=== PATIENT | female | born 1950 | race Caucasian/White ===

== ENCOUNTER → 2016-11-12 | Outpatient (CLI) | payer BC ==
[~2016-11-12] MED LIST: ALBU1AER9 INH; ALPR-411 PO; ASPI-232 PO; BUPR75TA8 PO
--- NOTE | 2016-11-12 16:25 | DIAGNOSTIC IMAGING REPORT ---
CHEST 2 VIEWS ROUTINE CLINICAL HISTORY: 66 years-old Female presenting with congestion, shortness of breath, asthma. TECHNIQUE: PA and lateral views of the chest were obtained. COMPARISON: 11/02/2012. FINDINGS: Cardiomediastinal silhouette normal. Lungs and pleural spaces clear. Osseous structures and upper abdomen normal. IMPRESSION: 1. No acute cardiopulmonary disease. Electronically signed by: Darius Hernandez M.D. 11/12/2016 4:24 PM Dictated Date/Time: 11/12/2016 4:23 PM
== END | disposition home or self-care (01) ==
LOC: C.RAD1850 16:05
PROVIDERS: ATTEND Internal Medicine Pulmonary Disease
DX: J45.909 Unspecified asthma, uncomplicated (principal)

== ENCOUNTER → 2017-06-17 | Outpatient (CLI) | payer OTHER ==
[2017-06-17 17:36] LABS: HEMATOCRIT 40.7 % (37-47); HEMOGLOBIN 13.6 g/dL (12.0-16.0); MEAN CELL VOLUME 93.3 fL (80-100); MEAN CORPUSCULAR HEMOGLOBIN 31.2 pg (25-34); MEAN CORPUSCULAR HGB CONC 33.4 g/dl (32-36); MEAN PLATELET VOLUME 12.7 fL (7.4-10.4); PLATELET COUNT 238 K/uL (130-400); RED CELL DISTRIBUTION WIDTH CV 13.9 % (11.5-14.5); RED CELL DISTRIBUTION WIDTH SD 47.4 fL (36.4-46.3); WHITE BLOOD COUNT 5.72 K/uL (4.8-10.8)
[2017-06-17 17:53] LABS: ALBUMIN 3.6 gm/dl (3.4-5.0); ALKALINE PHOSPHATASE 70 U/L (45-117); ALT/SGPT 20 U/L (12-78); AST/SGOT 21 U/L (15-37); BLOOD UREA NITROGEN 10 mg/dl (7-18); CALCIUM 8.4 mg/dl (8.5-10.1); CARBON DIOXIDE 24 mmol/L (21-32); CREATININE 0.73 mg/dl (0.60-1.20); GLUCOSE 80 mg/dl (70-99); POTASSIUM 3.9 mmol/L (3.5-5.1); SODIUM 138 mmol/L (136-145); TOTAL PROTEIN 7.5 gm/dl (6.4-8.2)
[2017-06-17 18:05] LABS: CHOLESTEROL 167 mg/dl (0-200); LDL CHOLESTEROL CALCULATED 96 mg/dl
== END | disposition home or self-care (01) ==
LOC: C.LABBFT 11:24
PROVIDERS: ATTEND Internal Medicine
DX: E78.00 Pure hypercholesterolemia, unspecified (principal)

== ENCOUNTER 2017-11-25 21:32 | Observation (INO) | payer OTHER ==
[~2017-11-25] VITALS: Ht 157.5 cm; Wt 79.0 kg
[2017-11-25] MEDS ORDERED: SODIUM CHLORIDE 0.9% 1000ML 1,000 ML IV STA ×2 (22:05→23:40)
[2017-11-25] MEDS ORDERED: MoRPHine SULFATE 4 MG/ML 1 ML CARP\\VIAL IV STA (22:05)
[2017-11-25] MEDS ORDERED: ONDANSETRON INJ 2 MG/ML 2 ML VIAL IV STA (22:05)
[2017-11-25 22:14] LABS: BASO ABS # 0.09 K/uL (0-0.2); EOS % 1.9 %; EOS ABS # 0.17 K/uL (0-0.5); HEMATOCRIT 40.9 % (37-47); HEMOGLOBIN 14.6 g/dL (12.0-16.0); IG# 0.03 K/uL (0.00-0.02); LYMPH % 35.8 %; LYMPH ABS # 3.15 K/uL (1.2-3.4); MEAN CELL VOLUME 92.3 fL (80-100); MEAN CORPUSCULAR HGB CONC 35.7 g/dl (32-36); MONO % 7.8 %; MONO ABS # 0.69 K/uL (0.11-0.59); NEUT % 53.2 %; NEUT ABS # 4.67 K/uL (1.4-6.5); PLATELET COUNT 237 K/uL (130-400); RED CELL DISTRIBUTION WIDTH SD 47.5 fL (36.4-46.3)
[2017-11-25] MEDS ORDERED: OPTIRAY 300 IV PRN (22:15)
[2017-11-25] MEDS ORDERED: HYDROmorphone INJ 1 MG/ML SYR IV STA (22:22)
[2017-11-25 22:26] LABS: ISTAT CREATININE 0.7 mg/dl (0.6-1.3); ISTAT IONIZED CALCIUM 0.89 mmol/l (1.12-1.32)
[2017-11-25 22:36] LABS: ALBUMIN 3.9 gm/dl (3.4-5.0); ALKALINE PHOSPHATASE 104 U/L (45-117); ALT/SGPT 24 U/L (12-78); AST/SGOT 28 U/L (15-37); BLOOD UREA NITROGEN 10 mg/dl (7-18); CALCIUM 8.6 mg/dl (8.5-10.1); CARBON DIOXIDE 23 mmol/L (21-32); CREATININE 1.01 mg/dl (0.60-1.20); GLUCOSE 99 mg/dl (70-99); LIPASE 174 U/L (73-393); POTASSIUM 3.8 mmol/L (3.5-5.1); SODIUM 136 mmol/L (136-145); TOTAL PROTEIN 7.9 gm/dl (6.4-8.2)
--- NOTE | 2017-11-25 22:37 | DIAGNOSTIC IMAGING REPORT ---
ABD/PELVIS IV CONTRAST ONLY CT DOSE: 616.63 mGy.cm HISTORY: Pain severe abd pain, lower, no BM TECHNIQUE: Multiaxial CT images of the abdomen and pelvis were performed following the use of intravenous contrast. A dose lowering technique was utilized adhering to the principles of ALARA. COMPARISON STUDY: None. FINDINGS: Lung bases are clear. Mild fatty replacement of the liver. Small hepatic cysts. Gallbladder is negative for distention. Kidneys enhance uniformly with no evidence for hydronephrosis. Bowel pattern is consistent with that of acute proximal to mid sigmoid diverticulitis. Moderate pericolonic infiltrative change with no evidence for abscess collection or obstructive change. Mild nonspecific small bowel enteritis. This may be reactive. IMPRESSION: 1. Acute proximal to mid sigmoid acute diverticulitis. 2. Mild secondary small bowel enteritis. 3. No evidence for abscess collection or obstruction. The above report was generated using voice recognition software. It may contain grammatical, syntax or spelling errors. Electronically signed by: Librado Segura M.D. 11/25/2017 10:35 PM Dictated Date/Time: 11/25/2017 10:32 PM
[2017-11-25] MEDS ORDERED: METRONIDAZOLE 500MG / 100ML NSS IV STA (22:38)
[2017-11-25] MEDS ORDERED: CEFTRIAXONE SOD INJ 2,000 MG in DEXTROSE 5% 50ML 50 ML IV STA (22:38)
[2017-11-25] MEDS ORDERED: VNTHFA/IN INH (22:57)
[2017-11-25] MEDS ORDERED: MOME200A INH (22:57)
[2017-11-25] MEDS ORDERED: MONT1TAB3 PO (22:57)
[2017-11-25] MEDS ORDERED: BUPR-102 PO (22:57)
[2017-11-25] MEDS ORDERED: ALUMINUM/MAGNESIUM/SIMETH (MAALOX MAX) 30 ML UDC PO PRN (23:30)
[2017-11-25] MEDS ORDERED: MAGNESIUM HYDROXIDE SUSP 30 ML UDC PO PRN (23:30)
[2017-11-25] MEDS ORDERED: ACETAMINOPHEN 325 MG TAB PO PRN (23:30)
[2017-11-25] MEDS ORDERED: POLYETHYLENE (MIRALAX) 17 GM PACK PO PRN (23:30)
--- NOTE | 2017-11-25 23:49 | History and Physical ---
History & Physical Date & Time of Service: Nov 25, 2017 at 23:33 Chief Complaint: Severe Abdominal Pain,Constipation Since Thursday Primary Care Physician: Gerard Carmona M.D. History of Present Illness Source: patient, hospital records Patient is a 67 year old female with a PMH of anxiety and asthma that presented to [facility] with abdominal pain. Her pain started this morning when she was on her way to exercise at the gym. She said the pain is in her lower abdomen. It is a crampy pain with episodes of worsening sharp pain. It was an 8/10 but is currently a 4/10. The pain radiates to her back bilaterally. She has had chills. She notes she has not had a bowel movement in 6 days. She denies any diarrhea, blood in stool, vomiting, weight loss, night sweats, hematuria, or dysuria. Due to the constipation she notes that she did speak to her PCP's nurse who told her to drink a concoction of sprite, and prune juice. The patient notes this made her symptoms worse. She did have a colonoscopy in 2013 which was normal. She has never had diverticulitis before. She eats a healthy varied diet. She exercises regularly. She was given 1mg of dilaudid in the ED and her sats went down to 80% therefore she was put on oxygen. Past Medical/Surgical History Medical Problems: (1) Diverticulitis Family History No family history of GI disease or bowel cancer Social History Smoking Status: Never Smoker Smokeless Tobacco Use: No Alcohol Use: socially (2 glasses of wine) Drug Use: none Marital Status: Housing status: lives with family Occupational Status: retired Immunizations History of Influenza Vaccine: Unknown History of Tetanus Vaccine?: Unknown History of Pneumococcal: Unknown History of Hepatitis B Vaccine: Unknown Allergies Coded Allergies: No Known Allergies (Unverified , 01/31/14) Home Medications Scheduled Alprazolam (Xanax), 0.5 MG PO BID Aspirin (Aspir-81), 81 MG PO DAILY Bupropion Hcl (Smoking Deterre (Bupropion Hcl Sr), 150 MG PO BID Mometasone Furoate-Formoterol (Dulera 200/5 Mcg), 2 PUFFS INH BID Montelukast Sodium (Singulair), 10 MG PO DAILY Scheduled PRN Albuterol Hfa (Ventolin Hfa), 2 PUFFS INH Q4-6HRS PRN for Shortness of Breath Review of Systems 10 systems were reviewed and negative Physical Exam Vital Signs Date Time Temp Pulse Resp B/P (MAP) Pulse Ox O2 Delivery O2 Flow Rate FiO2 11/25/17 22:56 81 16 183/112 97 Nasal Cannula 2.0 11/25/17 22:46 97 Nasal Cannula 3.0 11/25/17 22:45 80 Room Air 11/25/17 22:39 92 11/25/17 22:22 97 Room Air 11/25/17 21:47 36.5 99 18 182/128 99 Room Air General Appearance: WD/WN, no apparent distress ENT: hearing grossly normal, pharynx normal Neck: supple, no adenopathy, no JVD, no carotid bruits, trachea midline Respiratory/Chest: lungs clear, no respiratory distress, no accessory muscle use Cardiovascular: regular rate, rhythm, no murmur, normal peripheral pulses Abdomen/GI: normal bowel sounds, soft, + tenderness (tenderness in the LLQ and suprapubic area) Extremities/Musculoskelatal: normal inspection, no calf tenderness, no pedal edema, non-tender Neurologic/Psych: alert, normal mood/affect, oriented x 3 Skin: + pertinent finding (dry mucous membranes) Diagnostics Laboratory Results Results Past 24 Hours Test 11/25/17 21:55 11/25/17 22:00 11/25/17 22:09 11/25/17 22:13 Range/Units White Blood Count 8.80 4.8-10.8 K/uL Red Blood Count 4.43 4.2-5.4 M/uL Hemoglobin 14.6 12.0-16.0 g/dL Hematocrit 40.9 37-47 % Mean Corpuscular Volume 92.3 80-100 fL Mean Corpuscular Hemoglobin 33.0 25-34 pg Mean Corpuscular Hemoglobin Concent 35.7 32-36 g/dl Platelet Count 237 130-400 K/uL Mean Platelet Volume 10.0 7.4-10.4 fL Neutrophils (%) (Auto) 53.2 % Lymphocytes (%) (Auto) 35.8 % Monocytes (%) (Auto) 7.8 % Eosinophils (%) (Auto) 1.9 % Basophils (%) (Auto) 1.0 % Neutrophils # (Auto) 4.67 1.4-6.5 K/uL Lymphocytes # (Auto) 3.15 1.2-3.4 K/uL Monocytes # (Auto) 0.69 0.11-0.59 K/uL Eosinophils # (Auto) 0.17 0-0.5 K/uL Basophils # (Auto) 0.09 0-0.2 K/uL RDW Standard Deviation 47.5 36.4-46.3 fL RDW Coefficient of Variation 14.0 11.5-14.5 % Immature Granulocyte % (Auto) 0.3 % Immature Granulocyte # (Auto) 0.03 0.00-0.02 K/uL Sodium Level 136 136-145 mmol/L Potassium Level 3.8 3.5-5.1 mmol/L Chloride Level 104 98-107 mmol/L Carbon Dioxide Level 23 21-32 mmol/L Anion Gap 9.0 16.0 16-25 mmol/L Blood Urea Nitrogen 10 7-18 mg/dl Creatinine 1.01 0.60-1.20 mg/dl Est Creatinine Clear Calc Drug Dose 53.6 ml/min Estimated GFR () 67.2 Estimated GFR (Non- 58.0 BUN/Creatinine Ratio 10.1 10-20 Random Glucose 99 70-99 mg/dl Calcium Level 8.6 8.5-10.1 mg/dl Total Bilirubin 0.4 0.2-1 mg/dl Direct Bilirubin 0.1 0-0.2 mg/dl Aspartate Amino Transf (AST/SGOT) 28 15-37 U/L Alanine Aminotransferase (ALT/SGPT) 24 12-78 U/L Alkaline Phosphatase 104 45-117 U/L Troponin I < 0.015 0-0.045 ng/ml Total Protein 7.9 6.4-8.2 gm/dl Albumin 3.9 3.4-5.0 gm/dl Lipase 174 73-393 U/L Urine Color YELLOW Urine Appearance SL CLOUDY CLEAR Urine pH 6.0 4.5-7.5 Urine Specific [place] 1.010 1.000-1.030 Urine Protein NEG NEG Urine Glucose (UA) NEG NEG Urine Ketones TRACE NEG Urine Occult Blood TRACE NEG Urine Nitrite NEG NEG Urine Bilirubin NEG NEG Urine Urobilinogen NEG NEG Urine Leukocyte Esterase MODERATE NEG Urine RBC 0-4 0-4 /hpf Urine WBC >30 0-5 /hpf Urine Epithelial Cells >30 0-5 /lpf Urine Bacteria 3+ NEG Bedside Lactic Acid Venous 1.63 0.90-1.70 mmol/L Bedside Hemoglobin 14.3 12.0-16.0 g/dl Bedside Hematocrit 42 37-47 % Bedside Sodium 137 135-144 mEq/L Bedside Potassium 4.0 3.3-5.0 mEq/L Bedside Chloride 106 101-112 mEq/L Bedside Total CO2 21 24-31 mEq/l Bedside Blood Urea Nitrogen 10 7-18 mg/dl Bedside Creatinine 0.7 0.6-1.3 mg/dl Bedside Glucose (other) 107 70-99 mg/dl Bedside Ionized Calcium (Nicky) 0.89 1.12-1.32 mmol/l Microbiology Results 11/25/17 Urine Culture, Received Pending Diagnostic Radiology ABD/PELVIS IV CONTRAST ONLY CT DOSE: 616.63 mGy.cm HISTORY: Pain severe abd pain, lower, no BM TECHNIQUE: Multiaxial CT images of the abdomen and pelvis were performed following the use of intravenous contrast. A dose lowering technique was utilized adhering to the principles of ALARA. COMPARISON STUDY: None. FINDINGS: Lung bases are clear. Mild fatty replacement of the liver. Small hepatic cysts. Gallbladder is negative for distention. Kidneys enhance uniformly with no evidence for hydronephrosis. Bowel pattern is consistent with that of acute proximal to mid sigmoid diverticulitis. Moderate pericolonic infiltrative change with no evidence for abscess collection or obstructive change. Mild nonspecific small bowel enteritis. This may be reactive. IMPRESSION: 1. Acute proximal to mid sigmoid acute diverticulitis. 2. Mild secondary small bowel enteritis. 3. No evidence for abscess collection or obstruction. Impression Assessment and Plan Patient is a 67 year old female with a PMH of anxiety and asthma that presented to [facility] with abdominal pain. She was found to have uncomplicated diverticulitis. The patient rated her pain as a 4, but did not feel safe going home due to the pain despite instructing her that this can be treated as an outpatient. Therefore she will be admitted under observation. Uncomplicated diverticulitis - IV metronidazole 500mg q8 - IV rocephin 2grams daily - IV NS 120 mls/hr - trial of clear liquid diet in the AM - IV zofran 4mg q6 and 30mg of toradol IV 30mg q6 Asthma - currently stable - singular held Anxiety - hold home PO meds DVTP - 40mg lovenox Full Code Attending addendum: I have physically seen this patient, have supervised the medical residents activities, and agree with the H&P unless as otherwise noted. Assessment and Plan: Diverticulitis-- Change ceftriaxone to 1 g IV daily. Metronidazole 500 mg IV every 8 hours. NSS at 120 ML's per hour. Zofran 4 mg IV every 6 hours as needed Toradol 30 mg IV every 6 hours as needed No further morphine or Dilaudid IV as was prescribed in the ED. Gradually titrate clear liquid to full liquid to low residue diet as tolerated. Further notations and orders as noted above. Advanced Directives Existing Advance Directive: No Existing Living Will: No Existing Power of Stranner: No Resuscitation Status VTE Prophylaxis Will order VTE Prophylaxis: Yes Social Service Consult None Apply
--- NOTE | 2017-11-26 00:09 | EMERGENCY ROOM VISIT NOTE ---
History First contact with patient: 21:52 Chief Complaint: ABDOMINAL PAIN Stated Complaint: SEVERE ABDOMINAL PAIN,CONSTIPATION SINCE THURSDAY Nursing Triage Summary: patient had c/o LLQ abdominal discomfort for past week along with constipation for past week. patient saw pcp and was told to try fleets enema and ducolax and had no success. History of Present Illness The patient is a 67 year old female who presents to the Emergency Room with complaints of severe lower abdominal pain for the past day that has been present for the past few days. Pain 10 out of 10. Nothing makes it better and any movement makes it worse. Patient has not had a bowel movement in a week. She tried stool softeners and Fleet's enema yesterday with no success. She drank a cocktail of apple juice prune juice and soda to help move her bowels but this did not help. Patient denies chest pain, dyspnea, fever, chills, urinary problems, back pain, cold symptoms. No history of diverticulitis in the past. She states her colonoscopy 2 years ago was normal. She has had laparoscopies in the past. Review of Systems An 10 system review of systems was completed with positives and pertinent negatives listed in the HPI. Past Medical/Surgical History Medical Problems: (1) Diverticulitis Social History Smoking Status: Never Smoker Alcohol Use: occasionally Drug Use: none Marital Status: Housing Status: lives with family Occupation Status: employed Current/Historical Medications Scheduled Alprazolam (Xanax), 0.5 MG PO BID Aspirin (Aspir-81), 81 MG PO DAILY Bupropion Hcl (Smoking Deterre (Bupropion Hcl Sr), 150 MG PO BID Mometasone Furoate-Formoterol (Dulera 200/5 Mcg), 2 PUFFS INH BID Montelukast Sodium (Singulair), 10 MG PO DAILY Scheduled PRN Albuterol Hfa (Ventolin Hfa), 2 PUFFS INH Q4-6HRS PRN for Shortness of Breath Physical Exam Vital Signs Date Time Temp Pulse Resp B/P (MAP) Pulse Ox O2 Delivery O2 Flow Rate FiO2 11/25/17 22:56 81 16 183/112 97 Nasal Cannula 2.0 11/25/17 22:46 97 Nasal Cannula 3.0 11/25/17 22:45 80 Room Air 11/25/17 22:39 92 11/25/17 22:22 97 Room Air 11/25/17 21:47 36.5 99 18 182/128 99 Room Air Physical Exam VITALS: Vitals are noted on the nurse's note and reviewed by myself. Vital signs hypertensive. GENERAL: White female writhing in pain, in no acute distress, nondiaphoretic, well-developed well-nourished. SKIN: The skin was without rashes, erythema, edema, or bruising. There is no tenting of the skin. Capillary reflex less than 2 seconds. HEAD: Normocephalic atraumatic. EARS: External auditory canals clear EYES: Pupils equal round and reactive to light and accommodation. Conjunctivae without injection, sclerae without icterus. Extraocular movements intact. NOSE: Patent, turbinates without inflammation or discharge. MOUTH: Mucous membranes moist. Pharynx without erythema or exudate. Uvula midline. Airway patent. Tongue does not deviate. NECK: Supple without nuchal rigidity. No lymphadenopathy. No thyromegaly. Cervical spine is nontender. No JVD. HEART: Regular rate and rhythm without murmurs gallops or rubs. LUNGS: Clear to auscultation bilaterally without wheezes, rales or rhonchi. No retractions or accessory muscle use. ABDOMEN: Positive bowel sounds x 4. Normal tympanic percussion. Soft, tender to palpation lower abdomen, without masses or organomegaly. Pardo sign negative. No guarding or rebound tenderness. No CVA tenderness MUSCULOSKELETAL: No muscle atrophy, erythema, or edema noted. NEURO: Patient was alert and oriented to person place and time. Normal sensation to light and sharp touch. No focal neurological deficits. Medical Decision & Procedures Laboratory Results 11/25/17 21:55 Red Blood Count 4.43, Mean Corpuscular Volume 92.3, Mean Corpuscular Hemoglobin 33.0, Mean Corpuscular Hemoglobin Concent 35.7, Mean Platelet Volume 10.0, Neutrophils (%) (Auto) 53.2, Lymphocytes (%) (Auto) 35.8, Monocytes (%) (Auto) 7.8, Eosinophils (%) (Auto) 1.9, Basophils (%) (Auto) 1.0, Neutrophils # (Auto) 4.67, Lymphocytes # (Auto) 3.15, Monocytes # (Auto) 0.69, Eosinophils # (Auto) 0.17, Basophils # (Auto) 0.09 11/25/17 21:55 Test 11/25/17 21:55 11/25/17 22:00 11/25/17 22:09 11/25/17 22:13 White Blood Count 8.80 K/uL (4.8-10.8) Red Blood Count 4.43 M/uL (4.2-5.4) Hemoglobin 14.6 g/dL (12.0-16.0) Hematocrit 40.9 % (37-47) Mean Corpuscular Volume 92.3 fL (80-100) Mean Corpuscular Hemoglobin 33.0 pg (25-34) Mean Corpuscular Hemoglobin Concent 35.7 g/dl (32-36) Platelet Count 237 K/uL (130-400) Mean Platelet Volume 10.0 fL (7.4-10.4) Neutrophils (%) (Auto) 53.2 % Lymphocytes (%) (Auto) 35.8 % Monocytes (%) (Auto) 7.8 % Eosinophils (%) (Auto) 1.9 % Basophils (%) (Auto) 1.0 % Neutrophils # (Auto) 4.67 K/uL (1.4-6.5) Lymphocytes # (Auto) 3.15 K/uL (1.2-3.4) Monocytes # (Auto) 0.69 K/uL (0.11-0.59) Eosinophils # (Auto) 0.17 K/uL (0-0.5) Basophils # (Auto) 0.09 K/uL (0-0.2) RDW Standard Deviation 47.5 fL (36.4-46.3) RDW Coefficient of Variation 14.0 % (11.5-14.5) Immature Granulocyte % (Auto) 0.3 % Immature Granulocyte # (Auto) 0.03 K/uL (0.00-0.02) Est Creatinine Clear Calc Drug Dose 53.6 ml/min Estimated GFR () 67.2 Estimated GFR (Non- 58.0 BUN/Creatinine Ratio 10.1 (10-20) Calcium Level 8.6 mg/dl (8.5-10.1) Total Bilirubin 0.4 mg/dl (0.2-1) Direct Bilirubin 0.1 mg/dl (0-0.2) Aspartate Amino Transf (AST/SGOT) 28 U/L (15-37) Alanine Aminotransferase (ALT/SGPT) 24 U/L (12-78) Alkaline Phosphatase 104 U/L (45-117) Troponin I < 0.015 ng/ml (0-0.045) Total Protein 7.9 gm/dl (6.4-8.2) Albumin 3.9 gm/dl (3.4-5.0) Lipase 174 U/L (73-393) Urine Color YELLOW Urine Appearance SL CLOUDY (CLEAR) Urine pH 6.0 (4.5-7.5) Urine Specific [place] 1.010 (1.000-1.030) Urine Protein NEG (NEG) Urine Glucose (UA) NEG (NEG) Urine Ketones TRACE (NEG) Urine Occult Blood TRACE (NEG) Urine Nitrite NEG (NEG) Urine Bilirubin NEG (NEG) Urine Urobilinogen NEG (NEG) Urine Leukocyte Esterase MODERATE (NEG) Urine RBC 0-4 /hpf (0-4) Urine WBC >30 /hpf (0-5) Urine Epithelial Cells >30 /lpf (0-5) Urine Bacteria 3+ (NEG) Bedside Lactic Acid Venous 1.63 mmol/L (0.90-1.70) Bedside Hemoglobin 14.3 g/dl (12.0-16.0) Bedside Hematocrit 42 % (37-47) Bedside Sodium 137 mEq/L (135-144) Bedside Potassium 4.0 mEq/L (3.3-5.0) Bedside Chloride 106 mEq/L (101-112) Bedside Total CO2 21 mEq/l (24-31) Anion Gap 16.0 mmol/L (16-25) Bedside Blood Urea Nitrogen 10 mg/dl (7-18) Bedside Creatinine 0.7 mg/dl (0.6-1.3) Bedside Glucose (other) 107 mg/dl (70-99) Bedside Ionized Calcium (Nicky) 0.89 mmol/l (1.12-1.32) Medications Administered Medications (Trade) Dose Ordered Sig/Gunnar Route Start Time Stop Time Status Last Admin Dose Admin Sodium Chloride 1,000 ml @ 999 mls/hr Q1H1M STAT IV 11/25/17 22:05 11/25/17 23:05 DC 11/25/17 22:13 999 MLS/HR Morphine Sulfate (MoRPHine SULFATE INJ) 4 mg NOW STAT IV 11/25/17 22:05 11/25/17 22:08 DC 11/25/17 22:13 4 MG Ondansetron HCl (Zofran Inj) 4 mg NOW STAT IV 11/25/17 22:05 11/25/17 22:08 DC 11/25/17 22:13 4 MG Hydromorphone HCl (Dilaudid Inj) 1 mg NOW STAT IV 11/25/17 22:22 11/25/17 22:23 DC 11/25/17 22:36 1 MG Ceftriaxone Sodium 2000 mg/ Dextrose 70 ml @ 100 mls/hr ONE STAT IV 11/25/17 22:38 11/25/17 23:19 DC 11/25/17 22:53 100 MLS/HR ED Course Prior records/ancillary studies reviewed. Triage Nursing notes reviewed. Additional history obtained from family. The patient's history was concerning for abdominal pain. Differential diagnosis: Etiologies such as appendicitis, diverticulitis, PUD, biliary pathology, UTI, pancreatitis, obstruction, mesenteric ischemia, aortic pathology, infections, inflammatory bowel disease, renal colic, as well as others were entertained. Physical examination findings: As above. ER treatment provided: Morphine, Dilaudid, Zofran, IV fluids, Rocephin, Flagyl On reassessment the patient felt better. Diagnostics interpreted by me: ECG: Normal sinus, normal intervals, no acute ST-T wave changes. Impression normal sinus rhythm interpreted by myself with poor baseline. I think arrhythmia is unlikely. EKG shows normal sinus rhythm with no interval abnormalities such as QT prolongation or WPW. There are no findings to suggest Brugada syndrome. Cardiac monitoring in the emergency department reveals no tachycardic or bradycardic dysrhythmia. Hypertrophic cardiomyopathy was considered but there are no clear historical elements pointing toward this. EKG is not suggestive. The QRS voltage is not extremely large and there are no suggestive Q waves. The labs revealed no leukocytosis. Negative lactic acid. Urine concerning for possible infection versus contamination and sent for culture Imaging studies: [~ rep ct add3]] ABD/PELVIS IV CONTRAST ONLY CT DOSE: 616.63 mGy.cm HISTORY: Pain severe abd pain, lower, no BM TECHNIQUE: Multiaxial CT images of the abdomen and pelvis were performed following the use of intravenous contrast. A dose lowering technique was utilized adhering to the principles of ALARA. COMPARISON STUDY: None. FINDINGS: Lung bases are clear. Mild fatty replacement of the liver. Small hepatic cysts. Gallbladder is negative for distention. Kidneys enhance uniformly with no evidence for hydronephrosis. Bowel pattern is consistent with that of acute proximal to mid sigmoid diverticulitis. Moderate pericolonic infiltrative change with no evidence for abscess collection or obstructive change. Mild nonspecific small bowel enteritis. This may be reactive. IMPRESSION: 1. Acute proximal to mid sigmoid acute diverticulitis. 2. Mild secondary small bowel enteritis. 3. No evidence for abscess collection or obstruction. The above report was generated using voice recognition software. It may contain grammatical, syntax or spelling errors. Electronically signed by: Librado Segura M.D. Consultation: A consultation was placed with the hospitalist, Dr. Knox. The case was discussed and diagnostics were reviewed. The patient was evaluated in the ER for further treatment. Exam and history seem consistent with diverticulitis. Patient was in severe amount of pain. There was no perforation. No high white count or fever. Patient was medicated multiple times but still was extremely uncomfortable. Medicine was consulted for possible admission. She was started on IV antibiotics. Patient agrees to treatment plan of possible admission. By the evaluation outlined above emergent etiologies such as appendicitis, PUD, biliary pathology, UTI, pancreatitis, obstruction, mesenteric ischemia, aortic pathology, inflammatory bowel disease, renal colic, as well as others were deemed relatively unlikely. The pt informed about the findings as listed above. All questions were answered and pleased with the treatment. Case reviewed with my attending The chart was completed utilizing [employer] voice recognition software. Grammatical errors, random word insertions, pronoun errors, and incomplete sentences are an occassional consequence of this system due to software limitations, ambient noise, and hardware issues. Any formal questions or concerns about the content, text, or information contained within the body of this dictation should be directly addressed to the physician clinical physician assistant for clarification. Medical Decision As above Medication Reconcilliation Current Medication List: was personally reviewed by me Blood Pressure Screening Patient's blood pressure: Elevated blood pressure Blood pressure disposition: Elevated BP felt to be situational Impression Primary Impression: Diverticulitis Departure Information Dispostion Being Evaluated By Hospitalist Condition GOOD Referrals Gerard Carmona M.D. (PCP) Patient Instructions My [facility]
[2017-11-26] MEDS ORDERED: IV FLUIDS COMPLETED PRN (00:15)
[2017-11-26 01:00] VITALS: BP 154/91; PULSE 69; TEMP 36.6; O2SAT 96; Ht 157.5 cm; Wt 79.0 kg
[2017-11-26] MEDS: KETOROLAC TROMETHAMINE 15 MG/ML VIAL IV. PRN ×3 (01:13→18:37)
[2017-11-26] MEDS: SODIUM CHLORIDE 0.9% 1000ML 1,000 ML IV SCH ×3 (01:13→20:16)
[2017-11-26] MEDS ORDERED: MoRPHine SULFATE 4 MG/ML 1 ML CARP\\VIAL IV STA ×2 (03:00→05:35)
[2017-11-26] MEDS ORDERED: FENTANYL CITRATE INJ 50 MCG/1 ML 2 ML VIAL IV ONE (05:45)
[2017-11-26] MEDS: METRONIDAZOLE / NSS 500 MG in PREMIXED NSS 100 ML IV SCH ×3 (05:54→20:52)
[2017-11-26] MEDS: ONDANSETRON INJ 2 MG/ML 2 ML VIAL IV PRN ×2 (07:01→17:21)
[2017-11-26 07:16] VITALS: BP 161/92; PULSE 80; TEMP 37; O2SAT 95
[2017-11-26] MEDS: ENOXAPARIN 40 MG/0.4 ML SYR SQ SCH (07:51)
[2017-11-26 08:00] VITALS: O2SAT 95
[2017-11-26] MEDS ORDERED: CEFEPIME IV 1,000 MG in DEXTROSE 5% 100ML 100 ML IV SCH (09:00)
[2017-11-26] MEDS ORDERED: CEFEPIME IV 1,000 MG in SYRINGE 0 ML IV STA (09:46)
[2017-11-26] MEDS ORDERED: MoRPHine SULFATE 2 MG/ML CARP IV STA (12:23)
[2017-11-26] MEDS ORDERED: MoRPHine SULFATE 2 MG/ML CARP IV PRN (12:30)
[2017-11-26] MEDS ORDERED: MoRPHine SULFATE 4 MG/ML 1 ML CARP\\VIAL IV PRN (12:30)
[2017-11-26 14:56] VITALS: BP 149/90; PULSE 88; TEMP 37.1; O2SAT 93
[2017-11-26 16:00] VITALS: O2SAT 95
[2017-11-26] MEDS: CEFEPIME IV 2,000 MG in SYRINGE 7.5 ML IV SCH (20:46)
--- NOTE | 2017-11-26 22:02 | Progress Note ---
Subjective Date of Service: Nov 26, 2017. Subjective Pt evaluation today including: conversation w/ patient, physical exam, lab review, review of inpatient medication list Pain: mild LLQ pain PO Intake: poor, tried clears, made pain worse Voiding: no voiding problems patient feeling a little better, still with LLQ pain, says clears make the pain worse discussed that she can hold off on eating until pain more improved no fever, vitals stable confirmed that she has had normal colonoscopies in the past, cannot recall if she had diverticular disease Review of Systems Abdomen: + pain (LLQ) All Other Systems: Reviewed and Negative Medications Current Inpatient Medications Medications (Trade) Dose Ordered Sig/Gunnar Route Start Time Stop Time Status Last Admin Dose Admin Ioversol (Optiray 300) 100 ml UD PRN IV 11/25/17 22:15 11/29/17 22:14 Enoxaparin Sodium (Lovenox Inj) 40 mg Q24H SQ 11/26/17 08:00 12/26/17 07:59 11/26/17 07:51 40 MG Acetaminophen (Tylenol Tab) 650 mg Q4H PRN PO 11/25/17 23:30 12/25/17 23:29 11/26/17 12:24 650 MG Al Hydrox/Mg Hydrox/Simethicone (Maalox Max Susp) 15 ml Q4H PRN PO 11/25/17 23:30 12/25/17 23:29 Magnesium Hydroxide (Milk Of Magnesia Susp) 30 ml Q6H PRN PO 11/25/17 23:30 12/25/17 23:29 Polyethylene (Miralax Powder Packet) 17 gm DAILY PRN PO 11/25/17 23:30 12/25/17 23:29 Ondansetron HCl (Zofran Inj) 4 mg Q6H PRN IV 11/25/17 23:30 12/25/17 23:29 11/26/17 17:21 4 MG Sodium Chloride 1,000 ml @ 120 mls/hr Q8H20M IV 11/26/17 02:00 12/26/17 01:59 11/26/17 20:16 120 MLS/HR Metronidazole 500 mg/Prmx 100 ml @ 100 mls/hr Q8H IV 11/26/17 06:00 12/06/17 05:59 11/26/17 20:52 100 MLS/HR Ketorolac Tromethamine (Toradol Inj) 15 mg Q6H PRN IV. 11/25/17 23:30 11/30/17 23:29 11/26/17 18:37 15 MG Miscellaneous (Iv Fluids Completed) 1 ea PRN PRN N/A 11/26/17 00:15 11/26/18 00:14 Cefepime HCl 2000 mg/Syringe 20 ml @ 5 mls/min Q12H IV 11/26/17 20:00 12/06/17 09:59 11/26/17 20:46 5 MLS/MIN Morphine Sulfate (MoRPHine SULFATE INJ) 2 mg Q4 PRN IV 11/26/17 12:30 12/10/17 12:29 Morphine Sulfate (MoRPHine SULFATE INJ) 4 mg Q4 PRN IV 11/26/17 12:30 12/10/17 12:29 Objective Vital Signs Date Time Temp Pulse Resp B/P (MAP) Pulse Ox O2 Delivery O2 Flow Rate FiO2 11/26/17 16:00 95 Room Air 11/26/17 14:56 37.1 88 18 149/90 (109) 93 Room Air 11/26/17 08:00 95 Room Air 11/26/17 07:16 37.0 80 16 161/92 (115) 95 Room Air 11/26/17 01:00 36.6 69 18 154/91 96 Room Air 11/26/17 00:17 92 16 168/94 92 Room Air 11/25/17 23:48 168/116 11/25/17 23:30 86 18 178/102 97 Nasal Cannula 2.0 11/25/17 22:56 81 16 183/112 97 Nasal Cannula 2.0 11/25/17 22:46 97 Nasal Cannula 3.0 11/25/17 22:45 80 Room Air 11/25/17 22:39 92 11/25/17 22:22 97 Room Air Physical Exam General Appearance: WD/WN, no apparent distress Eyes: normal inspection, EOMI, sclerae normal ENT: normal ENT inspection, hearing grossly normal, pharynx normal Neck: supple, no adenopathy, no JVD, trachea midline Respiratory/Chest: chest non-tender, lungs clear, normal breath sounds, no respiratory distress, no accessory muscle use Cardiovascular: regular rate, rhythm, no edema, no gallop, no JVD, no murmur Abdomen: normal bowel sounds, soft, no organomegaly, + tenderness (LLQ, no rebound or rigidity) Extremities: normal range of motion, non-tender, normal inspection, no pedal edema, no calf tenderness, pelvis stable 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, no motor/sensory deficits, alert, normal mood/affect, oriented x 3 Skin: normal color, warm/dry, no rash Laboratory Results Last 24 Hours Test 11/25/17 22:00 11/25/17 22:09 11/25/17 22:13 11/26/17 06:47 Urine Color YELLOW Urine Appearance SL CLOUDY Urine pH 6.0 Urine Specific [place] 1.010 Urine Protein NEG Urine Glucose (UA) NEG Urine Ketones TRACE Urine Occult Blood TRACE Urine Nitrite NEG Urine Bilirubin NEG Urine Urobilinogen NEG Urine Leukocyte Esterase MODERATE Urine RBC 0-4 /hpf Urine WBC >30 /hpf Urine Epithelial Cells >30 /lpf Urine Bacteria 3+ Bedside Lactic Acid Venous 1.63 mmol/L Bedside Hemoglobin 14.3 g/dl Bedside Hematocrit 42 % Bedside Sodium 137 mEq/L Bedside Potassium 4.0 mEq/L Bedside Chloride 106 mEq/L Bedside Total CO2 21 mEq/l Anion Gap 16.0 mmol/L Bedside Blood Urea Nitrogen 10 mg/dl Bedside Creatinine 0.7 mg/dl Bedside Glucose (other) 107 mg/dl Bedside Ionized Calcium (Nicky) 0.89 mmol/l Prothrombin Time 10.4 SECONDS Prothromb Time International Ratio 1.0 Assessment and Plan Patient is a 67 year old female with a PMH of anxiety and asthma that presented to [facility] with abdominal pain. She was found to have uncomplicated diverticulitis. The patient rated her pain as a 4, but did not feel safe going home due to the pain despite instructing her that this can be treated as an outpatient. Therefore she will be admitted under observation. Uncomplicated diverticulitis - Cefepime and Flagyl IV until pain improves, transition to PO at that point - continue NS 120 mls/hr since not eating well - hold on diet until she feels hungry, clears made pain worse - IV zofran 4mg q6 - Morphine q4 for pain control, Toradol not helping - check CBC and CMP in the AM, reassess pain Asthma - currently stable - singular held Anxiety - hold home PO meds DVTP - 40mg lovenox Full Code
[2017-11-26] MEDS ORDERED: CEFTRIAXONE SOD INJ 2,000 MG in DEXTROSE 5% 50ML 50 ML IV SCH (23:00)
[2017-11-26 23:51] VITALS: BP 152/87; PULSE 88; TEMP 37.5; O2SAT 94
[2017-11-27] MEDS: METRONIDAZOLE / NSS 500 MG in PREMIXED NSS 100 ML IV SCH ×2 (05:06→14:14)
[2017-11-27] MEDS: SODIUM CHLORIDE 0.9% 1000ML 1,000 ML IV SCH (05:09)
[2017-11-27 07:16] LABS: BASO % 0.1 %; BASO ABS # 0.01 K/uL (0-0.2); HEMATOCRIT 36.8 % (37-47); HEMOGLOBIN 12.7 g/dL (12.0-16.0); IG# 0.07 K/uL (0.00-0.02); LYMPH % 8.7 %; LYMPH ABS # 1.64 K/uL (1.2-3.4); MEAN CELL VOLUME 91.8 fL (80-100); MEAN CORPUSCULAR HEMOGLOBIN 31.7 pg (25-34); MEAN CORPUSCULAR HGB CONC 34.5 g/dl (32-36); MONO % 7.7 %; MONO ABS # 1.45 K/uL (0.11-0.59); NEUT % 83.1 %; NEUT ABS # 15.78 K/uL (1.4-6.5); PLATELET COUNT 212 K/uL (130-400); RED CELL DISTRIBUTION WIDTH CV 14.2 % (11.5-14.5); RED CELL DISTRIBUTION WIDTH SD 47.4 fL (36.4-46.3); WHITE BLOOD COUNT 18.95 K/uL (4.8-10.8)
[2017-11-27 07:53] LABS: ALBUMIN 2.9 gm/dl (3.4-5.0); ALKALINE PHOSPHATASE 70 U/L (45-117); ALT/SGPT 16 U/L (12-78); AST/SGOT 18 U/L (15-37); BLOOD UREA NITROGEN 11 mg/dl (7-18); CALCIUM 7.3 mg/dl (8.5-10.1); CARBON DIOXIDE 20 mmol/L (21-32); CREATININE 0.61 mg/dl (0.60-1.20); GLUCOSE 120 mg/dl (70-99); POTASSIUM 3.1 mmol/L (3.5-5.1); SODIUM 135 mmol/L (136-145); TOTAL PROTEIN 6.4 gm/dl (6.4-8.2)
[2017-11-27 08:00] VITALS: O2SAT 95
[2017-11-27] MEDS: ENOXAPARIN 40 MG/0.4 ML SYR SQ SCH (08:17)
[2017-11-27] MEDS: CEFEPIME IV 2,000 MG in SYRINGE 7.5 ML IV SCH (08:17)
[2017-11-27 08:30] VITALS: BP 134/80; PULSE 104; TEMP 37.5; O2SAT 95
[2017-11-27] MEDS ORDERED: POTASSIUM CHLORIDE INJ 40 MEQ in SODIUM CHLORIDE 0.9% 1000ML 1,000 ML IV SCH (09:15)
[2017-11-27] MEDS ORDERED: CIPR-255 PO (14:53)
[2017-11-27] MEDS ORDERED: METR500T PO (14:53)
[2017-11-27 14:58] VITALS: BP 153/96; PULSE 107; TEMP 37; O2SAT 96
--- NOTE | 2017-11-27 14:58 | Discharge Instructions ---
Discharge Instructions Date of Service Nov 27, 2017. Admission Reason for Admission: Diverticulitis Discharge Discharge Diagnosis / Problem: Acute diverticulitis Discharge Goals Goal(s): Improve function, Improve disease control, Diagnostic testing (should get colonoscopy in 6-8 weeks) Activity Recommendations Activity Limitations: per Instructions/Follow-up section Lifting Limitations: none Exercise/Sports Limitations: as tolerated May Resume Sexual Activity: when tolerated Shower/Bathe: no limitations Driving or Machine Use: no limitations . Instructions / Follow-Up Instructions / Follow-Up Medications: - CIPRO: take twice a day for 7 more days - FLAGYL: take three times a day for 7 more days Acute diverticulitis due to diverticular disease chronically, the case was mild, no signs of abscess, no large perforation treatment is antibiotics since this is first bout, you should have a colonoscopy in 6-8 weeks after you have completely recovered, please have PCP arrange as far as diet, continue low fiber diet for the next week but after one week , follow a high fiber diet, stay well hydrated FOLLOW UP - Dr. Carmona next week, call for appointment, have him refer you to record cutter in 6-8 weeks for colonoscopy Current Hospital Diet Patient's current hospital diet: Low Fiber Diet Discharge Diet Recommended Diet: Low Fiber Diet (for one week, then high fiber diet) Procedures Procedures Performed: none Pending Studies Studies pending at discharge: no Medical Emergencies . Who to Call and When: Medical Emergencies: If at any time you feel your situation is an emergency, please call 911 immediately. . Non-Emergent Contact Non-Emergency issues call your: Primary Care Provider Call Non-Emergent contact if: you have a fever, your pain is worsening, you have any medication questions . . "Provider Documentation" section prepared by Pk Jernigan. . [place] Drug Monitoring Program Search Results: no issues identified
[2017-11-27 15:10] VITALS: BP 153/96; PULSE 107; TEMP 37; O2SAT 96
--- NOTE | 2017-11-30 23:26 | Discharge Summary ---
Discharge Summary Date of Service Nov 27, 2017. Discharge Summary Admission Date: Nov 25, 2017 at 23:32 Discharge Date: Nov 27, 2017 Discharge Disposition: Home Principal Diagnosis: Acute diverticulitis Immunizations: Have You Had Influenza Vaccine: Unknown History of Tetanus Vaccine?: Unknown History of Pneumococcal: Unknown History of Hepatitis B Vaccine: Unknown Procedures: none Consultations: none Medication Reconciliation New Medications: Ciprofloxacin Hcl (Cipro) 500 Mg Tab 1 TAB PO BID for 7 Days, #14 TAB Metronidazole (Flagyl) 500 Mg Tab 500 MG PO TID for 7 Days, #21 TAB Continued Medications: Albuterol Hfa (Ventolin Hfa) 200 Puffs/01947 Mcg Aers 2 PUFFS INH Q4-6HRS PRN for Shortness of Breath, INHALER Alprazolam (Xanax) 0.5 Mg Tab 0.5 MG PO BID, TAB Aspirin (Aspir-81) 81 Mg Tab 81 MG PO DAILY Bupropion Hcl (Smoking [place] (Bupropion Hcl Sr) 150 Mg Tab 150 MG PO BID, TAB Mometasone Furoate-Formoterol (Dulera 200/5 Mcg) 1 Aer Aer 2 PUFFS INH BID, GM RINSE MOUTH AFTER USE Montelukast Sodium (Singulair) 10 Mg Tab 10 MG PO DAILY, TAB Discharge Exam Patient feeling much better, minimal abdominal pain, tolerated low fiber diet prior to discharge. Discussed plans for Cipro and Flagyl for 7 more days. She knew to follow up closely with Dr. Carmona Review of Systems: Constitutional: No fever, No chills, No sweats, No weight loss, No weakness , No fatigue, No problem reported Eyes: No worsening of vision, No eye pain, No redness, No discharge, No diplopia, No problem reported ENT: No hearing loss, No unusual epistaxis, No nasal symptoms, No sore throat, No tinnitus, No dental problems, No trouble swallowing, No problem reported Respiratory: No cough, No sputum, No wheezing, No shortness of breath, No dyspnea on exertion, No dyspnea at rest, No hemoptysis, No problem reported Cardiovascular: No chest pain, No orthopnea, No PND, No edema, No claudication, No palpitations, No problem reported Abdomen: + pain (minimal LLQ pain to deep palpation), No nausea, No vomiting , No diarrhea, No constipation, No GI bleeding, No problem reported Musculoskeletal: No joint pain, No muscle pain, No swelling, No calf pain, No problem reported Genitourinary - Female: No dysuria, No urinary frequency, No urinary urgency , No urinary incontinence, No urinary retention, No hematuria Neurologic: No memory loss, No paralysis, No weakness, No numbness/tingling , No vertigo, No balance problems, No problem reported Psychiatric: No depression symptoms, No anhedonism, No anxiety, No insomnia , No substance abuse, No problem reported Endocrine: No fatigue, No excessive thirst, No excessive urination, No problem reported Hematologic / Lymphatic: No abnormal bleeding/bruising, No clotting problems , No swollen lymph nodes, No night sweats, No problem reported Integumentary: No rash, No itch, No new/changing skin lesions, No color change, No bleeding, No problem reported Physical Exam: General Appearance: WD/WN, no apparent distress Eyes: normal inspection, EOMI, sclerae normal ENT: normal ENT inspection, hearing grossly normal, pharynx normal Neck: supple, no adenopathy, no JVD, trachea midline Respiratory/Chest: chest non-tender, lungs clear, normal breath sounds, no respiratory distress, no accessory muscle use Cardiovascular: regular rate, rhythm, no edema, no gallop, no JVD, no murmur , normal peripheral pulses Abdomen / GI: normal bowel sounds, soft, no organomegaly, + tenderness ( minimal tenderness to deep palpation in LLQ) Extremities: normal inspection, no calf tenderness, normal capillary refill , no pedal edema, normal range of motion, pelvis stable 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 She was found to have uncomplicated diverticulitis. The patient rated her pain as a 4, but did not feel safe going home due to the pain despite instructing her that this can be treated as an outpatient. Therefore she will be admitted under observation. Uncomplicated diverticulitis - Cefepime and Flagyl IV while inpatient, improved a lot over 36 hours - tolerated low fiber diet prior to discharge, no nausea or vomiting - no further diarrhea - treated withNS 120 mls/hr while admitted - WBC normal, afebrile, vitals stable - d/c home on Cipro/Flagyl x 7 more days - follow up with Dr. Carmona in one week, should have a colonoscopy in 6-8 weeks Asthma - currently stable - singular held Anxiety - hold home PO meds DVTP - 40mg lovenox Full Code Total Time Spent: Greater than 30 minutes This includes examination of the patient, discharge planning, medication reconciliation, and communication with other providers. Discharge Instructions Please refer to the electronic Patient Visit Report (Discharge Instructions) for additional information. Follow-Up Dr. Carmona in one week Additional Copies To Gerard Carmona M.D.
== END 2017-11-27 15:46 | disposition home or self-care (01) ==
LOC: C.EDB 21:33 → C.4E 23:32
PROVIDERS: ADMIT Hospitalist; ATTEND Internal Medicine
DX: R10.32 Left lower quadrant pain (principal); K57.52 Diverticulitis of both small and large intestine without perforation or abscess without bleeding; Z79.82 Long term (current) use of aspirin; J45.909 Unspecified asthma, uncomplicated; F41.9 Anxiety disorder, unspecified